=== PATIENT | male | born 1990 | race Two or more races ===

== ENCOUNTER → 2021-05-07 | Emergency (ER) | payer OTHER ==
[~2021-05-07] VITALS: Ht 180.3 cm; Wt 68.0 kg
== END | disposition home or self-care (01) ==
LOC: ER 01:23
DX: R10.9 Unspecified abdominal pain (principal)

== ENCOUNTER 2021-05-13 17:32 | Emergency (ER) | payer OTHER ==
[~2021-05-13] VITALS: Ht 180.3 cm; Wt 67.6 kg
[2021-05-13] MEDS ORDERED: PANTOPRAZOLE SO40 MG PO (17:40)
[2021-05-13] MEDS ORDERED: PREVACID30 MG PO (20:28)
[2021-05-13] MEDS ORDERED: CARAFATE1 GM PO (20:28)
[2021-05-13] MEDS ORDERED: PEPCID AC20 MG PO (20:28)
== END 2021-05-13 21:19 ==
LOC: ER 17:32
DX: K29.70 Gastritis, unspecified, without bleeding (principal)

== ENCOUNTER 2023-07-08 11:29 | Emergency (ER) | payer OTHER ==
[~2023-07-08] VITALS: Ht 177.8 cm; Wt 70.8 kg
[~2023-07-08 11:29] MED LIST: CARAFATE1 GM PO; PANTOPRAZOLE SO40 MG PO; PEPCID AC20 MG PO; PREVACID30 MG PO
[2023-07-08] MEDS ORDERED: TETANUS & DIPHTHERIA TOX,ADULT 0.5 ML VIAL IM ONE (12:15)
== END 2023-07-08 12:59 | disposition home or self-care (01) ==
LOC: ER 11:29
DX: S50.812A Abrasion of left forearm, initial encounter (principal); W45.8XXA Other foreign body or object entering through skin, initial encounter; Y93.89 Activity, other specified; Y92.89 Other specified places as the place of occurrence of the external cause; Y99.8 Other external cause status; Z88.6 Allergy status to analgesic agent

== ENCOUNTER 2024-05-21 08:04 | Outpatient (CLI) | payer OTHER | END 2024-05-21 08:05 | disposition home or self-care (01) | LOC: NUCLEAR 08:04 | PROVIDERS: ATTEND Internal Medicine | DX: R07.9 Chest pain, unspecified (principal) ==